=== PATIENT | female | born 1950 | race Two or more races ===

== ENCOUNTER → 2016-06-22 | Outpatient (CLI) | payer MEDICARE, OTHER ==
--- NOTE | 2016-06-22 14:54 | RADRPT ---
PROCEDURE: Left knee radiographs. CLINICAL INDICATION: Left knee pain. TECHNIQUE: Three views. Weight bearing. Frontal, lateral, and patellar view. COMPARISON: No prior studies are available for comparison. FINDINGS: There is no fracture or dislocation. The soft tissues are normal. There are mild degenerative changes with small osteophytes noted arising from the joint compartment margins. There is no joint space narrowing. There is no lytic or blastic lesion. There is no radiopaque foreign body. IMPRESSION: 1. Mild degenerative changes of the left knee. 2. Otherwise unremarkable study. RPTAT: QQ .Karthikeyan Solomon MD, MD Date Time Electronically viewed and signed by .Karthikeyan Solomon MD, on 06/22/2016 14:54 .R/
--- NOTE | 2016-06-22 22:08 | HKNOTE ---
DATE OF SERVICE: 06/22/2016 MAIN COMPLAINT: Pain in the left knee. HISTORY OF MAIN COMPLAINT: A 66-year-old female who had a sudden onset of pain in her left knee 1 [address] ago at 5:00 in the morning. The patient was not able to walk. For the entire day, she had pain and had to stay in bed. She was seen in an emergency room. She was given pain medication injectio n subcutaneously. Even this did not help very much. The next day, the pain had improved a little b it. She saw her GP who obtained an ultrasound of her left leg, which turned out to be normal. PRESENT COMPLAINTS: The patient complains of pain in the left knee that is located mainly over the posterior aspect of the knee and also anterior over the patella. The knee does not swell. There is no instability. She is not able to extend the knee fully nor can she flex it beyond about 85 degre es. She has been taking ibuprofen for the pain. She also got some [place] and that made her feel sick, so she did not continue to take it. She has been limping ever since she got this pain. She is hardly able to walk more than half a block without stopping. PAST MEDICAL HISTORY: Significant for a schwannoma and a meningioma, which are both small, and are being followed by an MRIs. No treatment is being offered. 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 PAST SURGICAL HISTORY: Breast surgery in 1995. Gallbladder removed 1999. For the rest of her notes, medications, systems review, see the chart written notes. PHYSICAL EXAMINATION: GENERAL: A fit looking, slightly overweight 66-year-old female. VITAL SIGNS: Height 5 feet 3 inches, weight 175 pounds. Blood pressure 130/60, temperature 99.5. LEFT KNEE: The left knee shows normal alignment. Active and passive extension lacks 5 degrees (leigha nful). Active and passive flexion is to 105 degrees, marked pain on attempting to flex the knee bey ond that point. The medial and lateral collateral ligaments and cruciate ligaments are intact. Lac hman test is negative. There is no tenderness, scarring, crepitus, or cysts. The patella tracks no rmally. There is no tenderness on the articular surface of the patella or in the patellar groove. The Q angle is normal. There is a 1+ effusion in the knee. IMAGING: Plain x-rays of the left knee obtained today show a mild narrowing of the medial joint spa ce. DISCUSSION: The rapid onset of the patient's symptoms and limited range of motion of the knee all s uggest that she has a torn meniscus. By way of diagnostic tests, as well as by way of giving her so me relief, the knee was injected with 10 mL of 2% lidocaine. Once the anesthetic took effect, I was able to get full flexion of the knee, but not full extension. DIAGNOSES: 1. Probable torn meniscus, left knee. 2. Degenerative osteoarthritis, left knee. MANAGEMENT: The patient is being sent for an MRI scan of the knee. She will be called with the [facility], . Dictated By: TOD CROWDER/BARBER Conf#: [id number] DID#: [id number]
== END | disposition home or self-care (01) ==
LOC: HKI 14:08
DX: M17.12 Unilateral primary osteoarthritis, left knee (principal); Z79.1 Long term (current) use of non-steroidal anti-inflammatories (NSAID)
CPT/HCPCS: 20610; 73562; G0463

== ENCOUNTER → 2017-02-22 | Outpatient (CLI) | payer MEDICARE, OTHER ==
--- NOTE | 2017-02-22 17:56 | RADRPT ---
PROCEDURE: Right knee radiographs. CLINICAL INDICATION: Right knee pain. TECHNIQUE: Three views. Weight bearing. Frontal, lateral, and patellar view. COMPARISON: No prior studies are available for comparison. FINDINGS: There is no fracture or dislocation. The soft tissues are normal. There are mild degenerative changes with small osteophytes arising from the joint compartment margin s. There is no joint space narrowing. There is no lytic or blastic lesion. There is no radiopaque foreign body. IMPRESSION: 1. Mild degenerative changes of the right knee. 2. Otherwise unremarkable study. RPTAT: QQ .Karthikeyan Solomon MD, MD Date Time Electronically viewed and signed by .Karthikeyan Solomon MD, on 02/22/2017 17:56 .R/
--- NOTE | 2017-03-14 09:16 | HKNOTE ---
DATE OF SERVICE: 02/22/2017 REFERRING PHYSICIAN: Whitney Bet[place], [id number] [facility] MAIN COMPLAINT: Pain in her right knee. HISTORY OF PRESENT ILLNESS: The patient saw me for left knee pain several years ago. She was given a cortisone injection and the knee settled down. The pain in her right knee had a sudden onset, without any injury, about 3 months ago. She simply woke up with the pain. The pain encompassed most of the anterior and posterior aspects of the knee. The pain radiates up the leg to the buttocks. She describes the pain as being moderate and is aggravated by walking and stair climbing. She does get night pain. She takes ibuprofen for the pain. The knee does not swell. There is no locking and no instability of the knee. She has a history of pain in the lower back. She had an MRI scan of the lumbar spine. She does not know what the results were. I note that she also had an MRI scan of the right knee. The patient does not does not use a walking aid. She can walk as far she likes on a flat and level surface. She does not limp. She does not have a shoe lift. The patient speaks barely a few words of Greek and I had to call Dr. Galilea Forrest to translate for me. PAST ORTHOPEDIC HISTORY: Negative. PRIOR CORTISONE INTAKE: None. ALCOHOL INTAKE: None. OTHER JOINT PROBLEMS: None. PAST MEDICAL HISTORY: 1. Type 2 diabetes. 2. Hypertension. PAST SURGICAL HISTORY: None. DRUG ALLERGIES: None. MEDICATIONS: 1. Voltaren gel. 2. Labetalol 3. Esomeprazole. 4. Metformin 1000 mg twice a day. FAMILY HISTORY: Father at 72 of cancer, diabetes, and heart problems. Mother at 46 of cancer. SYSTEMS REVIEW: High blood pressure and diabetes, otherwise negative. HABITS: The patient does not smoke or drink alcoholic beverages. PHYSICAL EXAMINATION: GENERAL: Patient is a fit-looking and youthful 67-year-old female, markedly overweight. VITAL SIGNS: Height 5 foot 3 inches. Weight 185 pounds. Blood pressure 125/75. Temperature 98.1. NEUROLOGIC: The patient walks without a walking aid. She has a mild antalgic gait. HIPS: Both hips have a full range of motion, without pain. KNEES: On examination of the right knee, slight varus alignment, full range of motion in extension is full, but painful. Flexion lacks 20 degrees (painful). Mild tenderness over the medial joint line, and 1 plus effusion. Patella tracks normally. All ligaments are intact. IMAGING: Plain x-rays on the right knee obtained today at the [facility] were reviewed. These show mild narrowing of the medial joint space, otherwise normal. An MRI scan on the right knee obtained on 02/01/[address] Dakota Sims as showing "changes in the proximal fibular collateral ligament compatible with a sprain. No acute tear demonstrated. Anterior and posterior cruciate ligaments are intact. Grade 2 signal in the posterior horn of the medial meniscus with increasing intensity within the posterior horn adjacent to and extending into the posterior root ligament. Lateral meniscus is intact. Lateral compartment articular cartilage is intact. Totbibnz-jg-kakgd joint effusion at present." DISCUSSION: A 67-year-old female with spontaneous onset of pain in her right knee, approximately 3 months ago. She has known all the classic symptoms of an internal derangement of the knee. Her manager psychology Dr. Whitney Betts ordered an MRI scan of the knee. This did not show a clear-cut meniscal tear, but hinted that there might be a tear near the posterior root of the medial meniscus. The only definite finding is slight narrowing of the medial compartment on image on plain x-rays. DIAGNOSES: 1. Mild degenerative osteoarthritis right knee. 2. Possible internal derangement (unlikely). MANAGEMENT: Under sterile conditions, she was given injection of 2 mL of Kenalog and 6 mL of 2 percent lidocaine into the knee. She will be seen again in 3 weeks' time for re-evaluation. If she is not much improved, then we might have to consider arthroscopic evaluation. I do, however, believed that she will be markedly improved by the cortisone injection. Dictated By: Dylon Montemayor MD /kizzy/dereje /Document#: [id number]
--- NOTE | 2017-03-14 09:16 | HKNOTE ---
DATE OF SERVICE: 02/22/2017 REFERRING PHYSICIAN: [place], [id number] [facility] MAIN COMPLAINT: Pain in her right knee. HISTORY OF PRESENT ILLNESS: The patient saw me for left knee pain several years ago. She was given a cortisone injection and the knee settled down. The pain in her right knee had a sudden onset, without any injury, about 3 months ago. She simply woke up with the pain. The pain encompassed most of the anterior and posterior aspects of the knee. The pain does radiate up the leg to the buttocks. She describes the pain as being moderate and is aggravated by walking and stair climbing. She does get night pain. She takes ibuprofen for the pain. The knee does not swell. There is no locking and no instability of the knee. She has a history of pain in the lower back. She had an MRI scan of the lumbar spine. She does not know what the results were. I note that she also had an MRI scan of the right knee. The patient does not does not use a walking aid. She can walk as far she likes on a flat and level surface. She does not limp. She does not have a shoe lift. The patient speaks barely a few words of Armenian and I had to call Dr. Galilea Forrest to translate for me. PAST ORTHOPEDIC HISTORY: Negative. PRIOR CORTISONE INTAKE: None. ALCOHOL INTAKE: None. OTHER JOINT PROBLEMS: None. PAST MEDICAL HISTORY: 1. Type 2 diabetes. 2. Hypertension. PAST SURGICAL HISTORY: None. DRUG ALLERGIES: None. MEDICATIONS: 1. Voltaren gel. 2. Labetalol 3. Esomeprazole. 4. Metformin 1000 mg twice a day. FAMILY HISTORY: Father at 72 of cancer, diabetes, and heart problems. Mother at 46 of cancer. SYSTEMS REVIEW: High blood pressure and diabetes, otherwise negative. HABITS: The patient does not smoke or drink alcoholic beverages. PHYSICAL EXAMINATION: GENERAL: Patient is a fit-looking and youthful 67-year-old female, markedly overweight. VITAL SIGNS: Height 5 foot 3 inches. Weight 185 pounds. Blood pressure 125/75. Temperature 98.1. NEUROLOGIC: The patient walks without a walking aid. She has a mild antalgic gait. HIPS: Both hips have a full range of motion, without pain. KNEES: On examination of the right knee, slight varus alignment, full range of motion in extension is full, but painful. Flexion lacks 20 degrees (painful). Mild tenderness over the medial joint line, and 1 plus effusion. Patella tracks normally. All ligaments are intact. IMAGING: Plain x-rays on the right knee obtained today at the [facility] were reviewed. These show mild narrowing of the medial joint space, otherwise normal. An MRI scan on the right knee obtained on 02/01/[address] Dakota Sims as showing changes in the proximal fibular collateral ligament compatible with a sprain. No acute tear demonstrated. Anterior and posterior cruciate ligaments are intact. Grade 2 signal in the posterior horn of the medial meniscus with increasing intensity within the posterior horn adjacent to and extending into the posterior root ligament. Lateral meniscus is intact. Lateral compartment articular cartilage is intact. Ycbsagov-zu-vbrhp joint effusion at present. DISCUSSION: A 67-year-old female with spontaneous onset of pain in her right knee, approximately 3 months ago. She has known all the classic symptoms of an internal derangement of the knee. Her cafeteria manager Dr. Whitney Betts ordered an MRI scan of the knee. This did not show a clear-cut meniscal tear, but hinted that there might be a tear near the posterior root of the medial meniscus. The only definite finding is slight narrowing of the medial compartment on image on plain x-rays. DIAGNOSES: 1. Mild degenerative osteoarthritis right knee. 2. Possible internal derangement (unlikely). MANAGEMENT: Under sterile conditions, she was given injection of 2 mL of Kenalog and 6 mL of 2 percent lidocaine into the knee. She will be seen again in 3 weeks' time for re-evaluation. If she is not much improved, then we might have to consider arthroscopic evaluation. I do, however, believed that she will be markedly improved by the cortisone injection. Dictated By: Dylon Montemayor MD /kizzy/dereje /Document#: [id number]
== END | disposition home or self-care (01) ==
LOC: HKI 13:51
DX: M17.11 Unilateral primary osteoarthritis, right knee (principal); M54.5 Low back pain; I10 Essential (primary) hypertension; E11.9 Type 2 diabetes mellitus without complications; Z79.84 Long term (current) use of oral hypoglycemic drugs
CPT/HCPCS: 20610; 73562; G0463

== ENCOUNTER → 2017-03-21 | Outpatient (CLI) | payer MEDICARE, OTHER ==
--- NOTE | 2017-03-22 10:33 | HKNOTE ---
DATE OF SERVICE: 03/21/2017 The patient continues to complain of pain in her right leg. The pain is not actually located to the right knee, but is located along the anterior aspect of the right leg from a point about 1 inch bel ow the tibial tubercle to just above the ankle. The injection of cortisone I gave her at the last v isit gave her mild relief for 3 days after. The pain continues and it is very "bothersome." On 03/11/2017, the pain was so severe that she had to be seen in the emergency room at [facility]. The report from the [facility] is present in the chart. The ER doctors were puzzled by her condition and seem to also believe that the problem was focused on her knee. There is no numbne ss or tingling in her leg. She gets occasional pain in her lower back. She had an MRI scan of her lumbar spine on 07/29/2016. The right knee does not swell, lock or feel unstable. An MRI scan of her lumbar spine obtained on 07/29/[address] Rose Tran as showin g "at L5-S1, a 5 to 6 mm left paracentral disk protrusion. This along with severe facet arthropathy bilaterally contributes to severe encroachment of the left lateral recess traversing the left S1 ne rve root without significant central stenosis. Moderate to severe left foraminal narrowing is noted ." PHYSICAL EXAMINATION: RIGHT KNEE: Today, a full range of motion. No swelling. No tenderness anywhere around the knee. No external sign of infection or inflammation. NEUROLOGIC: Lower extremities: Straight leg raising is negative bilaterally at 80 degrees. Deep t endon reflexes: Right knee plus, left knee plus, right ankle plus, left ankle plus. IMAGING: Imaging of the right knee obtained at the last visit at the [facility] were reviewed. Right knee 3 views: These do show mild narrowing of the medial joint space of the k nee. DIAGNOSES: 1. Mild degenerative osteoarthritis of the right knee. 2. Possible lumbar radiculopathy. Note that patient's blood pressure is quite markedly elevated today. On arrival, her blood pressure was 185/80. It is subsequently repeated at 150/70. Patient takes labetalol 200 mg 4 times a day. Sometimes, she adds clonidine. I called her senior electronics design engineer, Dr. Berumen, but he only works 1 day a week and is unreachable, so I called Dr Jeison Cosme who recommended that she take clonidine as soon as she gets home. She will also see Dr Jeison Berumen tomorrow (his usual 1 day). DISCUSSION: The patient's condition is not immediately apparent. It would appear that this is some form of radiculopathy. Her last MRI was obtained in July. I will repeat the MRI scan and furt her treatment will depend upon the findings. Possibly a lumbar epidural injection by way of diagnos tic tests as well as treatment might be the next step after that, regardless of the findings. She was given a repeat prescription for [place]. She will be seen again in a week's time. Dictated By: TOD CROWDER/BARBER Conf#: [id number] DID#: [id number]
== END | disposition home or self-care (01) ==
LOC: HKI 09:56
DX: M17.11 Unilateral primary osteoarthritis, right knee (principal)
CPT/HCPCS: G0463

== ENCOUNTER → 2017-03-27 | Outpatient (CLI) | payer MEDICARE, OTHER ==
--- NOTE | 2017-03-28 05:42 | HKNOTE ---
DATE OF SERVICE: 03/27/2017 Patient comes in with MRI scan of her lumbar spine for review. The MRI obtained on 03/23/2017 was r eported by Dr. Weston as showing L4 to 5 disk desiccation. Moderate to severe left-sided loss of d isk height. Overlapping 4 to 5 mm retrolisthesis with facet arthropathies contributing to moderate to severe left foraminal stenosis with compression of the left L5 and possible impingement of the le ft S1 nerve root. Mild spinal canal stenosis. Mild to moderate right foraminal stenosis. For further pathology, see the actual report. The most significant changes appeared at L5 to S1 lev el. MANAGEMENT: Through an official remote sensing technician connected by phone, I explained these findings to the p atient. She was advised that these symptoms almost certainly are in the form of a radiculopathy. S he was advised that she may respond to nerve root blocks or epidural injections. If she does not, s he may in fact become a candidate for spine surgery. She is being referred to Dr. Morales Jaquez for conservative management of her spinal stenosis. Dictated By: TOD CROWDER/BARBER Conf#: [id number] DID#: [id number]
== END | disposition home or self-care (01) ==
LOC: HKI 10:12
DX: M48.061 Spinal stenosis, lumbar region without neurogenic claudication (principal); M51.36 Other intervertebral disc degeneration, lumbar region; M43.16 Spondylolisthesis, lumbar region